=== PATIENT | female | born 1995 | race Caucasian/White ===

== ENCOUNTER 2017-12-13 14:17 | Day surgery (SDC) | payer BC ==
[2017-12-13] VITALS (11 sets, daily range): BP systolic 117–158; BP diastolic 79–96
[~2017-12-13] VITALS: Ht 165.1 cm; Wt 64.5 kg
[~2017-12-13 14:17] MED LIST: Cefazolin 2GM/100ML NS IVPB 100 ML IV ONE; DESO1TAB71 PO; HYDR-3965 PO; NORE1TAB58 PO; ceFAZolin 1GM/D5W- ADD-VANTAGE 50 ML IV ONE; famotidine 20mg tablet PO ONE; ringers solution, lacted 1,000 ML IV ONE; vancomycin/NS 1 GM ADD-VANTAGE 250 ML IV ONE
[2017-12-13] MEDS ORDERED: LIDOcaine 1% (10mg/ml) 2ml vial ONE (14:32)
[2017-12-13 15:16] LABS: BASOPHILS # (AUTO) 0.1 X10'3 (0-0.2); BASOPHILS % (AUTO) 0.4 % (0-1); EOSINOPHILS % (AUTO) 0.3 % (0-6); HEMOGLOBIN 13.7 g/dl (12.0-16.0); LYMPHOCYTES # (AUTO) 1.9 X10'3 (1.1-4.8); LYMPHOCYTES % (AUTO) 13.8 % (21-51); MEAN CORPUSCULAR HEMOGLOBIN 30.7 PG (27.0-31.0); MEAN CORPUSCULAR HGB CONC 34.3 % (33.0-36.5); MEAN CORPUSCULAR VOLUME 89.5 FL (78-98); MEAN PLATELET VOLUME 9.9 FL (7.4-10.4); NEUTROPHILS # (AUTO) 10.8 X10'3 (1.8-7.7); NEUTROPHILS % (AUTO) 78.5 % (42-75); PLATELET COUNT 287 X10'3 (140-440); RED BLOOD COUNT 4.47 X10'6 (4.20-5.60); RED CELL DISTRIBUTION WIDTH 12.9 % (11.5-14.5); WHITE BLOOD COUNT 13.8 X10'3 (4.5-11.0)
[2017-12-13 15:30] LABS: ALANINE AMINOTRANSFERASE 23 U/L (12-78); ALBUMIN 4.3 G/DL (3.4-5.0); ALKALINE PHOSPHATASE 73 IU/L (20-180); ANION GAP 12 (8-16); BILIRUBIN,TOTAL 0.6 MG/DL (0.1-1.0); BLOOD UREA NITROGEN 10 MG/DL (7-18); BUN/CREATININE RATIO 16.9 (6.6-38.0); CALCIUM 9.9 MG/DL (8.5-10.1); CHLORIDE 101 MMOL/L (99-107); CREATININE 0.59 MG/DL (0.40-0.90); GLUCOSE 87 MG/DL (70-104); SODIUM 140 MMOL/L (135-145); TOTAL CARBON DIOXIDE 26.6 MMOL/L (24-32); TOTAL PROTEIN 8.4 G/DL (6.4-8.2); eGFR > 90 ML/MIN
[2017-12-13 15:31] LABS: ASPARTATE AMINO TRANSFERASE 25 U/L (10-37); HCG SERUM QL NEGATIVE; POTASSIUM 3.4 MMOL/L (3.5-5.1)
[2017-12-13] MEDS ORDERED: midazolam 2 mg/2 ml injection ONE ×2 (16:57→18:14)
[2017-12-13] MEDS ORDERED: fentaNYL/PF 50MCG/1 ML 2ML syringe ONE ×3 (16:57→18:52)
[2017-12-13] MEDS ORDERED: ROPIVAcaine 0.5% (5mg/ml) 30ml vial ONE (16:58)
[2017-12-13] MEDS ORDERED: LIDOcaine 1%/PF (10mg/ml) 5ml vial ONE (16:58)
[2017-12-13] MEDS ORDERED: 0.9 % SODIUM CHLORIDE 10 ML VIAL ONE (16:58)
[2017-12-13] MEDS ORDERED: propofol inj 20 ML IV ONE (16:58)
[2017-12-13] MEDS ORDERED: vancomycin 1,000mg inj ONE (17:50)
[2017-12-13] MEDS ORDERED: sevoflurane 250ml liquid IH ONE (18:10)
[2017-12-13] MEDS ORDERED: dexamethasone sod phosphate 4mg/ml inj. ONE (18:43)
[2017-12-13] MEDS ORDERED: meperidine/PF 25mg/ml syringe ONE (20:14)
[2017-12-13] MEDS ORDERED: ringers solution, lacted 1,000 ML IV SCH (20:14)
[2017-12-13] MEDS ORDERED: acetaminophen 1,000mg/100ml IV 100 ML IV PRN (20:15)
[2017-12-13] MEDS ORDERED: meperidine/PF 25mg/ml syringe IV PRN (20:15)
[2017-12-13] MEDS ORDERED: proCHLORperazine 10 MG/2 ml inj IV PRN (20:15)
[2017-12-13] MEDS ORDERED: ketorolac trometh. 30mg/ml inj. IV ONE (20:15)
[2017-12-13] MEDS ORDERED: ondansetron/PF 4mg/2ml inj IV PRN (20:15)
[2017-12-13] MEDS: fentaNYL/PF 50MCG/1 ML 2ML syringe IV PRN ×2 (20:25→20:33)
[2017-12-13] MEDS ORDERED: morphine 4 MG/ML inj SYRINge ONE (20:59)
[2017-12-13] MEDS ORDERED: morphine 4 MG/ML inj SYRINge IV PRN ×2 (21:00)
== END 2017-12-13 21:35 | disposition home or self-care (01) ==
LOC: PAS 14:17
PROVIDERS: ATTEND Orthopaedic Surgery
PROC: 0PSG04Z Reposition Left Humeral Shaft with Internal Fixation Device, Open Approach (ICD-10-PCS; principal; 2017-12-13 18:10)
DX: S42.352A Displaced comminuted fracture of shaft of humerus, left arm, initial encounter for closed fracture (principal); M79.602 Pain in left arm; V80.010A Animal-rider injured by fall from or being thrown from horse in noncollision accident, initial encounter; Y93.89 Activity, other specified; Y92.89 Other specified places as the place of occurrence of the external cause; Y99.8 Other external cause status; Z79.891 Long term (current) use of opiate analgesic; Z79.899 Other long term (current) drug therapy
CPT/HCPCS: 24515; 36415; 73060; 76000; 80053; 84703; 85025; A4565; A6449; J0131; J0690; J1100; J1885; J2001; J2175; J2250; J2270; J2704; J2795; J3010; J3370; J3490; J7120; A7000